=== PATIENT | male | born 1950 | race Caucasian/White ===

== ENCOUNTER 2021-08-03 04:09 | Inpatient (IN) | payer OTHER ==
[2021-07-30 19:47] VITALS: BMI 25.0
[2021-08-03] MEDS ORDERED: PROPOFOL 20 ML ONE ×5 (12:16→15:11)
[2021-08-03] MEDS ORDERED: ceFAZolin SODIUM 1 GM VIAL ONE ×3 (12:32→23:32)
[2021-08-03] MEDS ORDERED: THROMBIN (BOVINE) 20,000 UNIT VIAL TP ONE (12:32)
[2021-08-03] MEDS ORDERED: KETAMINE HCL 200 MG/20 ML VIAL ONE (12:54)
[2021-08-03] MEDS ORDERED: MIDAZOLAM HCL 2 MG/2 ML SINGLE DOSE VIAL ONE (13:00)
[2021-08-03] MEDS ORDERED: SUCCINYLCHOLINE CHLORIDE 200 MG/10 ML SYRINGE ONE (13:22)
[2021-08-03] MEDS ORDERED: ceFAZolin SODIUM 1 GM VIAL IVPB ONE ×4 (13:30→14:50)
[2021-08-03] MEDS ORDERED: ceFAZolin 2 GRAM PREMIX BAG IVPB ONE (14:02)
[2021-08-03] MEDS ORDERED: THROMBIN (BOVINE) 5,000 UNIT VIAL TP ONE ×2 (14:02→14:15)
[2021-08-03] MEDS ORDERED: PHENYLEPHRINE HCL 10 MG/1 ML SINGLE DOSE VIAL ONE (15:34)
[2021-08-03] MEDS ORDERED: DEXAMETHASONE SOD PHOSPHATE 4 MG/1 ML VIAL ONE (15:34)
[2021-08-03] MEDS ORDERED: LIDOCAINE HCL/PF 2% SDV 5ML VIAL ONE (15:34)
[2021-08-03] MEDS ORDERED: ONDANSETRON 4 MG/2 ML VIAL ONE (15:34)
[2021-08-03] MEDS ORDERED: diphenhydrAMINE HCL 25 MG CAPSULE (FP) PO PRN (16:58)
[2021-08-03] MEDS ORDERED: ONDANSETRON 4 MG/2 ML VIAL IVPUSH PRN ×2 (16:58→17:58)
[2021-08-03] MEDS ORDERED: HYDROmorphone HCl 2 MG/ML VIAL IVPUSH ONE ×5 (17:59→18:35)
[2021-08-03] MEDS ORDERED: LACTATED RINGERS SOLUTION 1,000 ML IV SCH (18:00)
[2021-08-03] MEDS ORDERED: HYDROmorphone HCl 2 MG/ML VIAL ONE (18:58)
[2021-08-03] MEDS: morphine SULFATE 4 MG/ML VIAL IVPUSH PRN (21:00)
[2021-08-03] MEDS: INSULIN SLIDING SCALE (NOVOLOG) 1 VIAL SQ SCH (22:47)
[2021-08-03] MEDS: CARBIDOPA/LEVODOPA 25/100 TABLET (FP) PO SCH (22:47)
[2021-08-03] MEDS: DOCUSATE SODIUM 100 MG CAPSULE (FP) PO SCH (22:47)
[2021-08-03] MEDS: HEPARIN NA (PORCINE) 5,000 UNITS/ML 1ML VIAL SQ SCH (22:47)
[2021-08-03] MEDS: ATORVASTATIN CA 20 MG TABLET (FP) PO SCH (22:47)
[2021-08-03] MEDS: LACTATED RINGERS SOLUTION 1,000 ML/1,000 ML INFUS.BAG IV SCH (22:53)
[2021-08-03] MEDS ORDERED: DEXTROSE 5%-WATER - 50 ML IVPB ONE (23:32)
[2021-08-04] MEDS: LACTATED RINGERS SOLUTION 1,000 ML/1,000 ML INFUS.BAG IV SCH (01:12)
[2021-08-04] MEDS ORDERED: ceFAZolin SODIUM 1 GM VIAL ONE ×3 (01:18→09:25)
[2021-08-04] MEDS ORDERED: DEXTROSE 5%-WATER - 50 ML IVPB ONE ×3 (01:18→09:26)
[2021-08-04] MEDS: CARBIDOPA/LEVODOPA 25/100 TABLET (FP) PO SCH ×3 (06:11→22:58)
[2021-08-04] MEDS: DOCUSATE SODIUM 100 MG CAPSULE (FP) PO SCH ×3 (06:11→22:58)
[2021-08-04] MEDS: HEPARIN NA (PORCINE) 5,000 UNITS/ML 1ML VIAL SQ SCH ×3 (06:11→22:58)
[2021-08-04] MEDS: morphine SULFATE 4 MG/ML VIAL IVPUSH PRN (06:11)
[2021-08-04] MEDS: INSULIN SLIDING SCALE (NOVOLOG) 1 VIAL SQ SCH ×4 (06:13→22:59)
[2021-08-04] MEDS: CEFAZOLIN 1 GM in DEXTROSE 5%-WATER - 1 GM/50 ML IVPB IVPB SCH ×3 (07:00→15:07)
[2021-08-04] MEDS ORDERED: metFORMIN HCL 500 MG TABLET (FP) PO SCH (07:00)
[2021-08-04 08:57] LABS: HEMATOCRIT 36.9 % (35.4-49); HEMOGLOBIN 12.3 GM/dL (11.7-16.9); MCH 29.7 pg (25.7-33.7); MCHC 33.3 g/dl (32.0-35.9); MEAN CELL VOLUME 89.2 fl (80-96); PLATELET COUNT 172 10^3/uL (134-434); RBC 4.13 M/mm3 (4.00-5.60); RDW 14.7 % (11.9-15.9); WHITE BLOOD COUNT 10.1 K/mm3 (4.0-10.0)
[2021-08-04 09:27] LABS: CALCIUM 8.1 mg/dL (8.5-10.1)
[2021-08-04 09:28] LABS: BLOOD UREA NITROGEN 18.2 mg/dL (7-18); MAGNESIUM 1.9 mg/dL (1.8-2.4)
[2021-08-04 09:31] LABS: PHOSPHOROUS 3.8 mg/dL (2.5-4.9)
[2021-08-04] MEDS: ASPIRIN COATED 81 MG TABLET.EC PO SCH (09:33)
[2021-08-04] MEDS: FOLIC ACID 1 MG TABLET (FP) PO SCH (09:34)
[2021-08-04] MEDS ORDERED: PATIENT'S OWN MEDICATION (NON-FORMULARY) (Empagliflozin [Jardiance] 10 MG Tablet) PO SCH (10:00)
[2021-08-04] MEDS ORDERED: LOSARTAN POTASSIUM 25 MG TABLET PO SCH (10:00)
[2021-08-04] MEDS: oxyCODONE HCL 5 MG TABLET PO PRN ×2 (10:09→16:14)
[2021-08-04] MEDS: METHOCARBAMOL 500 MG TABLET PO SCH ×3 (10:45→22:58)
[2021-08-04] MEDS ORDERED: SODIUM CHLORIDE 250 ML IV STA (18:35)
[2021-08-04] MEDS ORDERED: MAGNESIUM SULF 50% (8.12 MEQ/2 ML-1 GM VIAL) IVPB ONE (18:36)
[2021-08-04 20:12] LABS: HEMATOCRIT 42.3 % (35.4-49); HEMOGLOBIN 13.7 GM/dL (11.7-16.9); MCH 29.5 pg (25.7-33.7); MCHC 32.5 g/dl (32.0-35.9); MEAN CELL VOLUME 90.9 fl (80-96); MEAN PLT VOLUME 9.6 fl (7.5-11.1); PLATELET COUNT 171 10^3/uL (134-434); RBC 4.65 M/mm3 (4.00-5.60); RDW 15.1 % (11.9-15.9); WHITE BLOOD COUNT 9.9 K/mm3 (4.0-10.0)
[2021-08-04] MEDS ORDERED: MAGNESIUM 2GM/50ML STERILE WATER IVPB IVPB ONE (22:15)
[2021-08-04] MEDS: ATORVASTATIN CA 20 MG TABLET (FP) PO SCH (22:58)
[2021-08-05] MEDS: LACTATED RINGERS SOLUTION 1,000 ML/1,000 ML INFUS.BAG IV SCH (01:41)
[2021-08-05] MEDS: HEPARIN NA (PORCINE) 5,000 UNITS/ML 1ML VIAL SQ SCH ×3 (06:02→21:53)
[2021-08-05] MEDS: CARBIDOPA/LEVODOPA 25/100 TABLET (FP) PO SCH ×3 (06:02→21:54)
[2021-08-05] MEDS: DOCUSATE SODIUM 100 MG CAPSULE (FP) PO SCH ×3 (06:02→21:54)
[2021-08-05] MEDS: INSULIN SLIDING SCALE (NOVOLOG) 1 VIAL SQ SCH ×4 (06:13→21:55)
[2021-08-05 09:01] LABS: MCH 29.6 pg (25.7-33.7); MCHC 33.4 g/dl (32.0-35.9); MEAN CELL VOLUME 88.8 fl (80-96); MEAN PLT VOLUME 9.5 fl (7.5-11.1); PLATELET COUNT 163 10^3/uL (134-434); RBC 4.06 M/mm3 (4.00-5.60); RDW 14.9 % (11.9-15.9); WHITE BLOOD COUNT 7.7 K/mm3 (4.0-10.0)
[2021-08-05 09:25] LABS: BLOOD UREA NITROGEN 20.4 mg/dL (7-18)
[2021-08-05 09:28] LABS: CREATININE 0.9 mg/dL (0.55-1.3)
[2021-08-05] MEDS: FOLIC ACID 1 MG TABLET (FP) PO SCH (10:38)
[2021-08-05] MEDS: ASPIRIN COATED 81 MG TABLET.EC PO SCH (10:38)
[2021-08-05] MEDS: METHOCARBAMOL 500 MG TABLET PO SCH ×4 (10:39→21:54)
[2021-08-05] MEDS: POLYETHYLENE GLYCOL (HEALTHYLAX) 3350 17 GM PACKET PO SCH (12:04)
[2021-08-05] MEDS ORDERED: SODIUM CHLORIDE 1,000 ML IV STA (13:33)
[2021-08-05] MEDS: ATORVASTATIN CA 20 MG TABLET (FP) PO SCH (21:54)
[2021-08-06] MEDS: INSULIN SLIDING SCALE (NOVOLOG) 1 VIAL SQ SCH ×4 (07:21→21:46)
[2021-08-06] MEDS: DOCUSATE SODIUM 100 MG CAPSULE (FP) PO SCH ×3 (07:21→21:46)
[2021-08-06] MEDS: CARBIDOPA/LEVODOPA 25/100 TABLET (FP) PO SCH ×3 (07:21→21:46)
[2021-08-06] MEDS: HEPARIN NA (PORCINE) 5,000 UNITS/ML 1ML VIAL SQ SCH ×3 (07:21→21:46)
[2021-08-06] MEDS: oxyCODONE HCL 5 MG TABLET PO PRN (08:13)
[2021-08-06 09:05] LABS: HEMATOCRIT 35.4 % (35.4-49); HEMOGLOBIN 11.6 GM/dL (11.7-16.9); MCH 29.3 pg (25.7-33.7); MCHC 32.7 g/dl (32.0-35.9); MEAN CELL VOLUME 89.6 fl (80-96); MEAN PLT VOLUME 9.6 fl (7.5-11.1); PLATELET COUNT 165 10^3/uL (134-434); RBC 3.95 M/mm3 (4.00-5.60); RDW 14.7 % (11.9-15.9); WHITE BLOOD COUNT 8.2 K/mm3 (4.0-10.0)
[2021-08-06] MEDS: LOSARTAN POTASSIUM 25 MG TABLET PO SCH (09:21)
[2021-08-06] MEDS: POLYETHYLENE GLYCOL (HEALTHYLAX) 3350 17 GM PACKET PO SCH (09:21)
[2021-08-06] MEDS: METHOCARBAMOL 500 MG TABLET PO SCH ×4 (09:21→21:46)
[2021-08-06] MEDS: ASPIRIN COATED 81 MG TABLET.EC PO SCH (09:21)
[2021-08-06] MEDS: FOLIC ACID 1 MG TABLET (FP) PO SCH (09:21)
[2021-08-06 09:22] LABS: BLOOD UREA NITROGEN 16.5 mg/dL (7-18); CALCIUM 8.2 mg/dL (8.5-10.1)
[2021-08-06 09:26] LABS: CREATININE 0.9 mg/dL (0.55-1.3)
[2021-08-06] MEDS ORDERED: INSULIN (NOVOLOG) ASPART 100 UNITS/ML 10ML VIAL ONE (21:26)
[2021-08-06] MEDS: ATORVASTATIN CA 20 MG TABLET (FP) PO SCH (21:46)
[2021-08-07] MEDS: HEPARIN NA (PORCINE) 5,000 UNITS/ML 1ML VIAL SQ SCH ×2 (06:32→14:33)
[2021-08-07] MEDS: DOCUSATE SODIUM 100 MG CAPSULE (FP) PO SCH ×2 (06:32→14:33)
[2021-08-07] MEDS: CARBIDOPA/LEVODOPA 25/100 TABLET (FP) PO SCH ×2 (06:33→14:33)
[2021-08-07] MEDS: INSULIN SLIDING SCALE (NOVOLOG) 1 VIAL SQ SCH ×2 (06:38→11:18)
[2021-08-07 09:19] LABS: HEMATOCRIT 35.2 % (35.4-49); HEMOGLOBIN 11.9 GM/dL (11.7-16.9); MCHC 33.8 g/dl (32.0-35.9); MEAN CELL VOLUME 88.6 fl (80-96); MEAN PLT VOLUME 9.3 fl (7.5-11.1); PLATELET COUNT 180 10^3/uL (134-434); RBC 3.97 M/mm3 (4.00-5.60); RDW 14.6 % (11.9-15.9); WHITE BLOOD COUNT 7.8 K/mm3 (4.0-10.0)
[2021-08-07] MEDS: oxyCODONE HCL 5 MG TABLET PO PRN (09:26)
[2021-08-07] MEDS: ASPIRIN COATED 81 MG TABLET.EC PO SCH (09:27)
[2021-08-07] MEDS: FOLIC ACID 1 MG TABLET (FP) PO SCH (09:27)
[2021-08-07] MEDS: POLYETHYLENE GLYCOL (HEALTHYLAX) 3350 17 GM PACKET PO SCH (09:27)
[2021-08-07] MEDS: METHOCARBAMOL 500 MG TABLET PO SCH ×2 (09:27→14:33)
[2021-08-07] MEDS: LOSARTAN POTASSIUM 25 MG TABLET PO SCH (09:27)
[2021-08-07 09:29] LABS: BLOOD UREA NITROGEN 12.2 mg/dL (7-18); CALCIUM 8.3 mg/dL (8.5-10.1)
[2021-08-07 09:33] LABS: CREATININE 0.9 mg/dL (0.55-1.3)
[2021-08-07 14:45] VITALS: BP 103/55; PULSE 81; TEMP 98.1
[2021-08-07 16:08] LABS: SARS-CoV-2 NAA Not Detected (Not Detected)
== END 2021-08-07 16:18 | DRG 460 ==
LOC: J2C 04:09 → J6S 20:37
PROVIDERS: ADMIT Neurological Surgery; ATTEND Internal Medicine
PROC: 0ST20ZZ Resection of Lumbar Vertebral Disc, Open Approach (ICD-10-PCS; 2021-08-03)
PROC: 00NY0ZZ Release Lumbar Spinal Cord, Open Approach (ICD-10-PCS; 2021-08-03)
PROC: 4A1104G Monitoring of Peripheral Nervous Electrical Activity, Intraoperative, Open Approach (ICD-10-PCS; 2021-08-03)
PROC: 0SG00AJ Fusion of Lumbar Vertebral Joint with Interbody Fusion Device, Posterior Approach, Anterior Column, Open Approach (ICD-10-PCS; principal; 2021-08-03 11:00)
DX: M48.062 Spinal stenosis, lumbar region with neurogenic claudication (principal); M54.16 Radiculopathy, lumbar region; M43.16 Spondylolisthesis, lumbar region; I10 Essential (primary) hypertension; E11.51 Type 2 diabetes mellitus with diabetic peripheral angiopathy without gangrene; G20 Parkinson's disease; E78.5 Hyperlipidemia, unspecified; M54.30 Sciatica, unspecified side
CPT/HCPCS: 36415; 72100-TC-FY; 76000-TC-FY; 80048; 82962; 83735; 84100; 85027; 86850; 86900; 86901; 86922; 93005; 93010; 94760; 97116-GP; 97162-GP; C9803-CS; J1644; U0003; U0005

== ENCOUNTER 2022-08-31 04:00 | Day surgery (SDC) | payer OTHER ==
[2022-08-27 17:41] VITALS: BMI 23.6
[~2022-08-31 04:00] MED LIST: BUPIVACAINE HCL/PF 0.75% 10 ML VIAL PNB ONE; LIDOCAINE 1% P/F 10 MG/ML VIAL INF ONE
[2022-08-31] MEDS ORDERED: BUPIVACAINE HCL/PF 0.75% 10 ML VIAL ONE (08:20)
[2022-08-31] MEDS ORDERED: LIDOCAINE HCL/PF 1% SDV 5ML VIAL ONE (08:20)
[2022-08-31 10:53] VITALS: RESP 18
[2022-08-31] MEDS ORDERED: ACETAMINOPHEN 500 MG TABLET (FP) PO PRN (11:07)
[2022-08-31] MEDS ORDERED: LIDOCAINE 1% P/F 10 MG/ML VIAL INF ONE ×2 (11:41)
[2022-08-31] MEDS ORDERED: BUPIVACAINE HCL/PF 0.75% 10 ML VIAL PNB ONE ×2 (11:41)
[2022-08-31 13:04] VITALS: BP 131/75; PULSE 88; TEMP 97.6
== END 2022-08-31 12:50 | disposition home or self-care (01) ==
LOC: JASU-SURG 04:00
PROVIDERS: ATTEND Pain Medicine Pain Medicine
PROC: 3E0T33Z Introduction of Anti-inflammatory into Peripheral Nerves and Plexi, Percutaneous Approach (ICD-10-PCS; 2022-08-31)
PROC: 3E0T3BZ Introduction of Anesthetic Agent into Peripheral Nerves and Plexi, Percutaneous Approach (ICD-10-PCS; principal; 2022-08-31 11:30)
DX: M47.816 Spondylosis without myelopathy or radiculopathy, lumbar region (principal)
CPT/HCPCS: 76000-TC-FY